=== PATIENT | female | born 1985 | race Caucasian/White ===

== ENCOUNTER 2016-07-18 16:43 | Emergency (ER) | payer BC ==
[~2016-07-18] VITALS: Ht 160 cm; Wt 55.7 kg
[~2016-07-18 16:43] MED LIST: DIFLUCAN150 MG PO; DOXYCYCLINE HY100 M3 PO; LEVOTHYROXINE50 MCG PO; MOBIC15 MG PO; Motrin PO; NOHOMEMEDS; NORCO 5/3251 TABLET PO; ORTHO TRI-CY1 TABLE1 PO; PEN-VEE K,VEET500 MG PO; PHENERGAN-CODE120 ML PO; PRENATAL1 EACH PO; Percocet 5/325,Endoc PO; TRINESSA1 EACH PO; ZOFRAN4 MG PO
[2016-07-18 17:17] LABS: ADD MIUA? YES; BILIRUBIN NEGATIVE; BLOOD LARGE; COLOR YELLOW ((YELLOW)); GLUCOSE (STRIP) NEGATIVE; KETONES NEGATIVE; LEUKOCYTES NEGATIVE; NITRITE NEGATIVE; PROTEIN (STRIP) NEGATIVE; SPECIFIC GRAVITY 1.016 (1.000-1.030); UROBILINOGEN 0.2 MG/DL (0.2-1.0)
[2016-07-18] MEDS ORDERED: FLAGYL500 MG PO (17:25)
[2016-07-18 17:49] LABS: BACTERIA 1+ /HPF; CASTS NONE SEEN /LPF; CRYSTALS NONE SEEN; EPITHELIAL CELLS RARE /HPF; MUCUS RARE /LPF; RED BLOOD CELLS TNTC /HPF (0-5); UCUL ADDED? NO; WHITE BLOOD CELLS 0-5 /HPF (0-5)
[2016-07-18 18:03] VITALS: BP 123/84
[2016-07-21 14:40] LABS: CHLAMYDIA TRACHOMATIS NEGATIVE; NEISSERIA GONORRHOEAE NEGATIVE
== END 2016-07-18 18:05 | disposition home or self-care (01) ==
LOC: EME 16:43
PROVIDERS: Nurse Practitioner Family
DX: N76.0 Acute vaginitis (principal)
CPT/HCPCS: 81003; 87491; 87591; 99281; 99283